=== PATIENT | male | born 1995 | race American Indian/Alaskan Native ===

== ENCOUNTER 2021-11-26 19:17 | Emergency (ER) | payer OTHER ==
[2021-11-26] MEDS ORDERED: LORazepam 2 MG/ML VIAL IM PRN (21:11)
[2021-11-26] MEDS ORDERED: HALOPERIDOL LACTATE 5 MG/1 ML INJ IM PRN (21:11)
--- NOTE | 2021-11-26 21:11 | Emergency Department Report ---
ED General Adult HPI - General Chief complaint: Psych Stated complaint: SUICIDAL Time Seen by Provider: 11/26/21 21:10 Source: patient, EMS (Verbal report received from emergency medical services. EMS documentation not available at time of chart dictation ), RN notes reviewed Mode of arrival: Stretcher Limitations: Other (Patient is disorganized and not forthcoming.) - History of Present Illness Initial comments: The patient is a 26-year-old gentleman who is brought to the hospital by emergency medical services with an EMS articulated complaint of 1013. [place] and reportedly wanted to overdose on insulin. As per EMS, he has not overdosed on insulin. In the emergency room, the patient is agitated, disorganized, and banging his head on the back of the wall. He would not answer questions about whether or not he wants to kill himself, or whether or not he overdosed on insulin. And spite of attempting to verbally de- escalate patient, and demonstrate show of force, patient continues to bang head on the back of wall, and is not demonstrative of decision-making capacity for rational thought process. He is therefore placed on a 1013, and medicated with haloperidol, Ativan, and subsequently Geodon, to allow for acquisition of appropriate diagnostic studies. The patient is not accompanied by friends or family at this time for collateral information or additional information. EMS reports unremarkable vital signs and specifically unremarkable Accu-Chek in the field -: unknown - Related Data Allergies Allergy/AdvReac Type Severity Reaction Status Date / Time aspirin AdvReac Unknown Verified 11/26/21 20:26 ED Review of Systems ROS: Stated complaint: SUICIDAL Other details as noted in HPI Comment: Unobtainable due to pts medical conditions ED Past Medical Hx - Past Medical History Hx Hypertension: Yes Hx Diabetes: Yes Hx Asthma: Yes - Social History Smoking Status: Unknown if ever smoked ED Physical Exam - General Limitations: No Limitations, Other (Patient is disorganized and uncooperative) General appearance: anxious, obese - Head Head exam: Present: atraumatic, normocephalic - Eye Eye exam: Present: normal appearance, EOMI. Absent: nystagmus - ENT ENT exam: Present: normal exam, normal orophraynx, mucous membranes moist, normal external ear exam - Neck Neck exam: Present: normal inspection, full ROM. Absent: tenderness, meningismus - Respiratory Respiratory exam: Present: normal lung sounds bilaterally. Absent: respiratory distress, wheezes, rales, rhonchi, stridor, decreased breath sounds - Cardiovascular Cardiovascular Exam: Present: normal rhythm, tachycardia, normal heart sounds. Absent: bradycardia, irregular rhythm, systolic murmur, diastolic murmur, rubs, gallop - GI/Abdominal GI/Abdominal exam: Present: soft. Absent: distended, tenderness, guarding, rebound, rigid, pulsatile mass - Rectal Rectal exam: Present: deferred - Extremities Exam Extremities exam: Present: normal inspection, full ROM, other (2+ pulses noted in the bilateral upper and lower extremities. There is no palpable cord. negative Homans sign. Muscular compartments are soft. The pelvis is stable.). Absent: calf tenderness - Back Exam Back exam: Present: normal inspection. Absent: tenderness, CVA tenderness (R), CVA tenderness (L), paraspinal tenderness, vertebral tenderness - Neurological Exam Neurological exam: Present: alert (The patient is alert to name. The patient moves 4 extremities. There is no facial droop. The tongue is midline. There is 5 out of 5 strength in 4 extremities.) - Psychiatric Psychiatric exam: Present: agitated, anxious - Skin Skin exam: Present: warm, dry, intact, normal color. Absent: rash ED Course Vital Signs 11/26/21 11/26/21 20:16 21:13 Temperature 98 F Pulse Rate 115 H Respiratory 16 Rate Blood Pressure 156/116 O2 Sat by Pulse 96 Oximetry - Reevaluation(s) Reevaluation #1: 11/26/21 21:46 Differential diagnosis, including but not limited to: Psychosis, disorganized behavior, overdose, medical clearance for psychiatric placement Assessment and plan: 26-year-old gentleman, who is afebrile, with reassuring vital signs with exception of tachycardia, likely secondary to agitation, psychosis, and suicidality, presenting today with EMS with disorganized behavior, lack of decision-making capacity, self-injurious behavior, and report of suicide ideation. 1013 is ordered. Appropriate as needed sedating medications ordered. Appropriate laboratory studies are requested. Psychiatric consultation is requested. Observe patient in the ER, reassess after laboratory studies have resulted. Reevaluation #2: 11/26/21 21:53 Patient noted to be eating fried chicken. Have advised patient that he is NPO. Patient still continues to eat his fried chicken. Attempted to move fried chicken from patient's hands and mouth. Have ordered n.p.o. status, and aspiration precautions. Reevaluation #3: 11/26/21 22:13 Police Department have arrived and de-escalated the patient. Phlebotomy able to obtain laboratory studies. Patient more calm and cooperative. Still anxious and disorganized. Awaiting laboratory studies. White blood cell count of 13 is most likely a stress reaction 11/26/21 22:58 Laboratory studies essentially unremarkable. Mild hyperglycemia reviewed and appreciated. CO2 of 18 likely secondary to hyperventilation. 11/27/21 01:02 Sleeping comfortably in stretcher. No acute distress. IV fluids infusing. Awaiting repeat basic metabolic panel. 11/27/21 02:04 Patient resting comfortably in stretcher. Repeat basic metabolic panel is reviewed and appreciated. Metabolic derangements essentially resolved. Hyperglycemia reviewed and appreciated. UA, COVID swab pending. The ER will follow along as the patient provides these. At this point in time, this patient does not appear to have an immediate medical contraindication to psychiatric admission, evaluation, consultation and placement. - EJ/Peripheral Line Arm R Time Out Performed: Yes Skin Cleansed in Sterile Fashion: Yes Size: 20 Dressing Placed: Tegaderm Patient Tolerated Procedure: well ED Medical Decision Making - Lab Data Result diagrams: 11/26/21 22:00 11/27/21 01:07 Vital Signs 11/26/21 11/26/21 20:16 21:13 Temperature 98 F Pulse Rate 115 H Respiratory 16 Rate Blood Pressure 156/116 O2 Sat by Pulse 96 Oximetry Lab Results 11/26/21 11/26/21 11/26/21 Range/Units 22:00 22:00 22:00 WBC (4.5-11.0) K/mm3 RBC (3.65-5.03) M/mm3 Hgb (11.8-15.2) gm/dl Hct (35.5-45.6) % MCV (84-94) fl MCH (28-32) pg MCHC (32-34) % RDW (13.2-15.2) % Plt Count (140-440) K/mm3 Sodium 132 L (137-145) mmol/L Potassium 4.1 (3.6-5.0) mmol/L Chloride 90.8 L (98-107) mmol/L Carbon Dioxide 18 L (22-30) mmol/L Anion Gap 27 mmol/L BUN 18 (9-20) mg/dL Creatinine 1.1 (0.8-1.3) mg/dL Estimated GFR > 60 ml/min BUN/Creatinine Ratio 16 % Glucose 331 H (75-100) mg/dL Calcium 10.2 (8.4-10.2) mg/dL Total Bilirubin 0.60 (0.1-1.2) mg/dL AST 18 (5-40) units/L ALT 33 (7-56) units/L Alkaline Phosphatase 65 (35-129) units/L Total Protein 8.4 H (6.3-8.2) g/dL Albumin 5.1 H (3.9-5) g/dL Albumin/Globulin Ratio 1.5 % TSH 4.470 H (0.270-4.200) mlU/mL Salicylates < 0.3 L (2.8-20.0) mg/dL Acetaminophen (10.0-30.0) ug/mL Valproic Acid < 2.8 L (50-100) ug/mL Waller 0.1 (0.0-1.2) mmol/L Plasma/Serum Alcohol (0-0.07) % 11/26/21 11/26/21 11/26/21 Range/Units 22:00 22:00 22:00 WBC 13.8 H (4.5-11.0) K/mm3 RBC 5.52 H (3.65-5.03) M/mm3 Hgb 15.1 (11.8-15.2) gm/dl Hct 44.7 (35.5-45.6) % MCV 81 L (84-94) fl MCH 27 L (28-32) pg MCHC 34 (32-34) % RDW 13.3 (13.2-15.2) % Plt Count 400 (140-440) K/mm3 Sodium (137-145) mmol/L Potassium (3.6-5.0) mmol/L Chloride (98-107) mmol/L Carbon Dioxide (22-30) mmol/L Anion Gap mmol/L BUN (9-20) mg/dL Creatinine (0.8-1.3) mg/dL Estimated GFR ml/min BUN/Creatinine Ratio % Glucose (75-100) mg/dL Calcium (8.4-10.2) mg/dL Total Bilirubin (0.1-1.2) mg/dL AST (5-40) units/L ALT (7-56) units/L Alkaline Phosphatase (35-129) units/L Total Protein (6.3-8.2) g/dL Albumin (3.9-5) g/dL Albumin/Globulin Ratio % TSH (0.270-4.200) mlU/mL Salicylates (2.8-20.0) mg/dL Acetaminophen 5.0 L (10.0-30.0) ug/mL Valproic Acid (50-100) ug/mL Waller (0.0-1.2) mmol/L Plasma/Serum Alcohol < 0.01 (0-0.07) % Critical care attestation.: If time is entered above; I have spent that time in minutes in the direct care of this critically ill patient, excluding procedure time. ED Disposition Clinical Impression: Medical clearance for psychiatric admission Disposition: [address] [place] [address] Is pt being admited?: No Does the pt Need Aspirin: No Condition: Good Referrals: REJI JERRY MD [Primary Care Provider] - 3-5 Days
[2021-11-26] MEDS ORDERED: ZIPRASIDONE MESYLATE 20 MG VIAL IM PRN (21:34)
[2021-11-26] MEDS ORDERED: ZIPRASIDONE MESYLATE 20 MG VIAL IM ONE (21:35)
[2021-11-26 22:11] LABS: Hematocrit 44.7 % (35.5-45.6); Hemoglobin 15.1 gm/dl (11.8-15.2); Mean Corpuscular HGB Conc 34 % (32-34); Mean Corpuscular Volume 81 fl (84-94); Platelet Count 400 K/mm3 (140-440); Red Blood Count 5.52 M/mm3 (3.65-5.03); Red Cell Distribution Width 13.3 % (13.2-15.2)
[2021-11-26 22:53] LABS: Alanine Aminotransferase 33 units/L (7-56); Albumin 5.1 g/dL (3.9-5); BUN/Creatinine Ratio 16; Blood Urea Nitrogen 18 mg/dL (9-20); Calcium 10.2 mg/dL (8.4-10.2); Hemolysis Index 34
[2021-11-26] MEDS ORDERED: SODIUM CHLORIDE 0.9% 1000 ML 2,000 ML IV ONE (23:06)
[2021-11-27 01:57] LABS: BUN/Creatinine Ratio 19; Blood Urea Nitrogen 19 mg/dL (9-20); Calcium 9.5 mg/dL (8.4-10.2); Hemolysis Index 5
[2021-11-27] MEDS ORDERED: DEXTROSE 50% IN WATER (25GM) 50 ML SYRINGE IV PRN ×2 (02:05→18:37)
[2021-11-27 04:50] LABS: Bilirubin,Urine NEG (Negative); Blood,Urine NEG (Negative); Color,Urine Yellow (Yellow); Mucus,Urine 1+ /HPF; Urobilinogen,Urine < 2.0 mg/dL (<2.0)
[2021-11-27 04:58] LABS: Amphetamine Screen,Urine PRESUMPTIVE NEGATIVE; Benzodiazepines Screen,Urine PRESUMPTIVE NEGATIVE; Cannabinoid Screen,Urine PRESUMPTIVE NEGATIVE; Cocaine Screen,Urine PRESUMPTIVE NEGATIVE; Methadone Screen,Urine PRESUMPTIVE NEGATIVE; Opiate Screen,Urine PRESUMPTIVE NEGATIVE
--- NOTE | 2021-11-27 14:39 | Consultation ---
History of Present Illness - Reason for Consult Consult date: 11/27/21 Reason for consult: mental health evaluation - History of Present Psychiatric Illness ED Note: The patient is a 26-year-old gentleman who is brought to the hospital by emergency medical services with an EMS articulated complaint of 1013. [place] and reportedly wanted to overdose on insulin. As per EMS, he has not overdosed on insulin. In the emergency room, the patient is agitated, disorganized, and banging his head on the back of the wall. He would not answer questions about whether or not he wants to kill himself, or whether or not he overdosed on insulin. And spite of attempting to verbally de-escalate patient, and demonstrate show of force, patient continues to bang head on the back of wall, and is not demonstrative of decision-making capacity for rational thought process. He is therefore placed on a 1013, and medicated with haloperidol, Ativan, and subsequently Geodon, to allow for acquisition of appropriate diagnostic studies. The patient is a 26 year old male with history unknown psychiatric history. In my encounter with the patient, he is calm, alert and oriented x3. The patient reports having suicidal ideation yesterday " I'm going through a lot of relationship problem, I recently broke up with my girl friend, I'm ok with it now." He endorses being depressed but states he was not trying to overdose on Insulin. The patient denies any current suicidal/homicidal ideation and denies hallucinations. PAST PSYCHIATRIC HISTORY Diagnoses: Unknown Suicide attempts or Self-harm behavior: Denies Prior psychiatric hospitalizations: Yes Substance Abuse history: Denies Previous psychiatric medications tried: Denies Outpatient treatment: Unknown PAST MEDICAL HISTORY: None reported Family Psychiatric History: None reported or documented SOCIAL HISTORY Marital Status: Single Living Arrangements: Lives with step mom Employment Status:employed Access to guns/weapons: Denies Education: 12th grade History of Abuse: Denies Legal History: unknown REVIEW OF SYSTEMS Constitutional: Negative for weight loss ENT: Negative for stridor Respiratory: Negative for cough or hemoptysis All other systems reviewed and are negative MENTAL STATUS EXAMINATION General Appearance and Behavior: Age appropriate, good hygiene, wearing appropriate clothes, good eye contact, anxious, cooperative Cooperation: Participating/engaged Psychomotor Behavior: Psychomotor normal Mood:depressed Affect and affective range: congruent with stated mood Thought Process: Goal directed Thought Content: Goal oriented Speech: Normal tone and pace Suicidal Ideation:Denies Homicidal Ideation: Denies Hallucinations: Denies Delusions: None Impulse Control: Limited Insight and Judgment: Limited insight and judgment Memory: Limited Attention: attentive Orientation: Alert, oriented Diagnoses: Major depressive disorder Treatment Plan 1013 Continue home meds Prozac 20mg po daily Trazodone 50mg po QHs PSYCHOTHERAPY: Supportive psychotherapy provided MEDICAL: Per primary team DELIRIUM PRECAUTIONS: Please re-orient patient frequently, keep lights on during the day, and minimize benzodiazepines and opiates as these medications could worsen patient's confusion. WELL HEAD PUMPER: Per medical team DISPOSITION:Recommend acute psychiatric inpatient treatment. Will follow. Thanks. Thank you for the consult. Case staffed with Dr. Ortega Medications and Allergies Medications and Allergies Allergies Allergy/AdvReac Type Severity Reaction Status Date / Time aspirin AdvReac Unknown Verified 11/26/21 20:26 Active Meds: Active Medications Dextrose (Dextrose 50% In Water (25gm) 50 Ml Syringe) 50 ml IV Q30MIN PRN; Prot ocol PRN Reason: Hypoglycemia Haloperidol Lactate (Haloperidol Lactate 5 Mg/1 Ml Inj) 5 mg IM Q6HR PRN PRN Reason: Agitation Insulin Glargine (Insulin Glargine 100 Units/Ml) 10 units SUB-Q QHS GILBERTO Insulin Human Lispro (Insulin Lispro 100 Unit/Ml) 0 unit SUB-Q Q6HR GILBERTO; Protocol Lorazepam (Lorazepam 2 Mg/Ml Vial) 2 mg IM Q4HR PRN PRN Reason: Agitation Ziprasidone (Ziprasidone Mesylate 20 Mg Vial) 10 mg IM Q2H PRN PRN Reason: Agitation Mental Status Exam - Vital signs Last Vital Signs Temp 98 F 11/26/21 21:13 Pulse 97 H 11/27/21 11:45 Resp 24 11/27/21 13:15 BP 136/68 11/27/21 13:15 Pulse Ox 89 11/27/21 13:15 Results Result Diagrams: 11/26/21 22:00 11/27/21 01:07 Abnormal lab results 11/26/21 11/26/21 11/26/21 Range/Units 22:00 22:00 22:00 WBC (4.5-11.0) K/mm3 RBC (3.65-5.03) M/mm3 MCV (84-94) fl MCH (28-32) pg Sodium 132 L (137-145) mmol/L Chloride 90.8 L (98-107) mmol/L Carbon Dioxide 18 L (22-30) mmol/L Glucose 331 H (75-100) mg/dL POC Glucose (70-105) mg/dL Total Protein 8.4 H (6.3-8.2) g/dL Albumin 5.1 H (3.9-5) g/dL TSH 4.470 H (0.270-4.200) mlU/mL Salicylates < 0.3 L (2.8-20.0) mg/dL Acetaminophen (10.0-30.0) ug/mL Valproic Acid < 2.8 L (50-100) ug/mL 11/26/21 11/26/21 11/27/21 Range/Units 22:00 22:00 01:07 WBC 13.8 H (4.5-11.0) K/mm3 RBC 5.52 H (3.65-5.03) M/mm3 MCV 81 L (84-94) fl MCH 27 L (28-32) pg Sodium 134 L (137-145) mmol/L Chloride 95.0 L (98-107) mmol/L Carbon Dioxide (22-30) mmol/L Glucose 311 H (75-100) mg/dL POC Glucose (70-105) mg/dL Total Protein (6.3-8.2) g/dL Albumin (3.9-5) g/dL TSH (0.270-4.200) mlU/mL Salicylates (2.8-20.0) mg/dL Acetaminophen 5.0 L (10.0-30.0) ug/mL Valproic Acid (50-100) ug/mL 11/27/21 Range/Units 08:53 WBC (4.5-11.0) K/mm3 RBC (3.65-5.03) M/mm3 MCV (84-94) fl MCH (28-32) pg Sodium (137-145) mmol/L Chloride (98-107) mmol/L Carbon Dioxide (22-30) mmol/L Glucose (75-100) mg/dL POC Glucose 238 H (70-105) mg/dL Total Protein (6.3-8.2) g/dL Albumin (3.9-5) g/dL TSH (0.270-4.200) mlU/mL Salicylates (2.8-20.0) mg/dL Acetaminophen (10.0-30.0) ug/mL Valproic Acid (50-100) ug/mL All other labs normal.
[2021-11-27] MEDS ORDERED: FLUoxetine 20 MG CAP PO ONE (15:12)
[2021-11-27] MEDS: INSULIN LISPRO 100 UNIT/ML SUB-Q SCH (18:37)
[2021-11-27] MEDS ORDERED: traZODone 50 MG TAB PO SCH (22:00)
[2021-11-27] MEDS ORDERED: INSULIN GLARGINE 100 UNITS/ML SUB-Q SCH (22:00)
[2021-11-27] MEDS ORDERED: LORazepam 2 MG/ML VIAL IV ONE (23:09)
[2021-11-28] MEDS: INSULIN LISPRO 100 UNIT/ML SUB-Q SCH (00:38)
[2021-11-28] MEDS: INSULIN REGULAR, HUMAN 100 UNITS/1 ML SUB-Q SCH ×2 (00:39→09:46)
--- NOTE | 2021-11-28 10:52 | Progress Note ---
Subjective - Reason for Consult Consult date: 11/28/21 Reason for consult: suicidal ideation - Chief Complaint Chief complaint: The patient was seen today. he is calm, alert and oriented x3. he reports that " I'm doing much better." The patient is remorseful about the incident that resulted in the current hospital admission. He states he has a job to go back to and also that his grandparents are supportive. The patient denies any current suicidal ideation and denies hallucinations. REVIEW OF SYSTEMS Constitutional: Negative for weight loss ENT: Negative for stridor Respiratory: Negative for cough or hemoptysis All other systems reviewed and are negative MENTAL STATUS EXAMINATION General Appearance and Behavior: Age appropriate, good hygiene, wearing appropriate clothes, good eye contact, anxious, cooperative Cooperation: Participating/engaged Psychomotor Behavior: Psychomotor normal Mood:Ok Affect and affective range: congruent with stated mood Thought Process: Goal directed Thought Content: Goal oriented Speech: Normal tone and pace Suicidal Ideation:Denies Homicidal Ideation: Denies Hallucinations: Denies Delusions: None Impulse Control: Limited Insight and Judgment: Limited insight and judgment Memory: Limited Attention: attentive Orientation: Alert, oriented Diagnoses: Major depressive disorder Treatment Plan DC 1013 Continue home meds Continue Prozac 20mg po daily PSYCHOTHERAPY: Supportive psychotherapy provided MEDICAL: Per primary team DELIRIUM PRECAUTIONS: Please re-orient patient frequently, keep lights on during the day, and minimize benzodiazepines and opiates as these medications could worsen patient's confusion. HEAD OF PHYSICS: Per medical team DISPOSITION:Do not recommend acute psychiatric inpatient treatment. Ship Pilot Dispatcher will provide patient with psychiatric outpatient resources and safety plan. Will sign off. Thanks. Thank you for the consult. Case staffed with Dr. Ortega Medications and Allergies Mental Status Exam - Vital signs Last Vital Signs Temp 98 F 11/26/21 21:13 Pulse 80 11/28/21 09:50 Resp 18 11/28/21 09:50 BP 167/100 11/28/21 09:50 Pulse Ox 99 11/28/21 09:50
--- NOTE | 2021-11-28 12:17 | Event Note ---
Date: 11/28/21 The patient was evaluated in the emergency department for symptoms described in the history of present illness. He/she was evaluated in the context of the global COVID-19 pandemic, which necessitated consideration that the patient might be at risk for infection with the virus that causes COVID-19. Institutional protocols and algorithms that pertain to the evaluation of patients at risk for COVID-19 are in a state of rapid change based on information released by regulatory bodies including the CDC and federal and state organizations. These policies and algorithms were followed during the patient's care in the emergency department. Please note that these policies, procedures and recommendations changed on a rapid basis. Laboratory studies, vital signs, nursing documentation, ER documentation, and psychiatric documentation are reviewed and appreciated. Nursing team reports no acute events this morning or concerns. The patient is awake and ambulating and does not appear to be in any acute distress. In my reassessment with the patient, he is very apologetic for his behavior a few days ago, and awake, alert, oriented, sober. He is adamant that he is not homicidal or suicidal. He is of sound mind at this point in time and exhibits decision-making capacity. Today, he is not meet criteria for 1013 hold or involuntary confinement. The psychiatric team have made similar recommendations. The patient follows with the [facility]. I have advised patient as to how he may follow-up with outpatient resources within the [facility]. Return precautions are reviewed. All questions answered. He may follow-up with his outpatient primary care doctor for his chronic hyperglycemia. Vital Signs 11/26/21 11/26/21 11/27/21 20:16 21:13 06:02 Temperature 98 F Pulse Rate 115 H 109 H Respiratory 16 26 H Rate Blood Pressure 156/116 Blood Pressure [Right] O2 Sat by Pulse 96 92 Oximetry 11/27/21 11/27/21 11/27/21 06:09 06:15 06:31 Temperature Pulse Rate Respiratory 25 H 27 H Rate Blood Pressure 164/98 164/98 Blood Pressure 152/78 [Right] O2 Sat by Pulse 89 91 Oximetry 11/27/21 11/27/21 11/27/21 06:45 07:01 07:15 Temperature Pulse Rate Respiratory 27 H 29 H 26 H Rate Blood Pressure 164/98 169/95 169/95 Blood Pressure [Right] O2 Sat by Pulse 91 87 94 Oximetry 11/27/21 11/27/21 11/27/21 07:31 07:45 08:01 Temperature Pulse Rate 87 104 H Respiratory 26 H 18 27 H Rate Blood Pressure 169/95 169/95 170/104 Blood Pressure 135/65 [Right] O2 Sat by Pulse 94 100 79 L Oximetry 11/27/21 11/27/21 11/27/21 08:15 08:31 08:45 Temperature Pulse Rate Respiratory 27 H 21 21 Rate Blood Pressure 170/104 170/104 170/104 Blood Pressure [Right] O2 Sat by Pulse 89 92 90 Oximetry 11/27/21 11/27/21 11/27/21 09:01 09:13 09:15 Temperature Pulse Rate 123 H 100 H Respiratory 20 18 Rate Blood Pressure 153/102 153/102 Blood Pressure [Right] O2 Sat by Pulse 98 99 98 Oximetry 11/27/21 11/27/21 11/27/21 09:45 10:01 10:31 Temperature Pulse Rate 97 H 100 H 105 H Respiratory 20 22 25 H Rate Blood Pressure 153/102 150/91 150/91 Blood Pressure [Right] O2 Sat by Pulse 96 95 92 Oximetry 11/27/21 11/27/21 11/27/21 11:45 12:45 13:15 Temperature Pulse Rate 97 H Respiratory 23 23 24 Rate Blood Pressure 130/86 147/99 136/68 Blood Pressure [Right] O2 Sat by Pulse 94 90 89 Oximetry 11/27/21 11/27/21 11/27/21 14:01 16:31 16:45 Temperature Pulse Rate Respiratory Rate Blood Pressure 140/94 151/90 151/90 Blood Pressure [Right] O2 Sat by Pulse 88 100 94 Oximetry 11/27/21 11/27/21 11/27/21 17:45 18:01 18:15 Temperature Pulse Rate Respiratory Rate Blood Pressure 157/73 141/86 141/86 Blood Pressure [Right] O2 Sat by Pulse 95 95 88 Oximetry 11/27/21 11/28/21 11/28/21 18:27 08:00 09:50 Temperature Pulse Rate 80 88 80 Respiratory 18 18 18 Rate Blood Pressure Blood Pressure 141/86 154/65 167/100 [Right] O2 Sat by Pulse 100 99 99 Oximetry Lab Results 11/26/21 11/26/21 11/26/21 Range/Units 22:00 22:00 22:00 WBC (4.5-11.0) K/mm3 RBC (3.65-5.03) M/mm3 Hgb (11.8-15.2) gm/dl Hct (35.5-45.6) % MCV (84-94) fl MCH (28-32) pg MCHC (32-34) % RDW (13.2-15.2) % Plt Count (140-440) K/mm3 Sodium 132 L (137-145) mmol/L Potassium 4.1 (3.6-5.0) mmol/L Chloride 90.8 L (98-107) mmol/L Carbon Dioxide 18 L (22-30) mmol/L Anion Gap 27 mmol/L BUN 18 (9-20) mg/dL Creatinine 1.1 (0.8-1.3) mg/dL Estimated GFR > 60 ml/min BUN/Creatinine Ratio 16 % Glucose 331 H (75-100) mg/dL POC Glucose (70-105) mg/dL Calcium 10.2 (8.4-10.2) mg/dL Total Bilirubin 0.60 (0.1-1.2) mg/dL AST 18 (5-40) units/L ALT 33 (7-56) units/L Alkaline Phosphatase 65 (35-129) units/L Total Protein 8.4 H (6.3-8.2) g/dL Albumin 5.1 H (3.9-5) g/dL Albumin/Globulin Ratio 1.5 % TSH 4.470 H (0.270-4.200) mlU/mL Urine Color (Yellow) Urine Turbidity (Clear) Urine pH (5.0-7.0) Ur Specific [place] (1.003-1.030) Urine Protein (Negative) mg/dL Urine Glucose (UA) (Negative) mg/dL Urine Ketones (Negative) mg/dL Urine Blood (Negative) Urine Nitrite (Negative) Urine Bilirubin (Negative) Urine Urobilinogen (<2.0) mg/dL Ur Leukocyte Esterase (Negative) Urine WBC (Auto) (0.0-6.0) /HPF Urine RBC (Auto) (0.0-6.0) /HPF U Epithel Cells (Auto) (0-13.0) /HPF Urine Mucus /HPF Salicylates < 0.3 L (2.8-20.0) mg/dL Urine Opiates Screen Urine Methadone Screen Acetaminophen (10.0-30.0) ug/mL Ur Barbiturates Screen Valproic Acid < 2.8 L (50-100) ug/mL Ur Phencyclidine Scrn Ur Amphetamines Screen U Benzodiazepines Scrn Tab 0.1 (0.0-1.2) mmol/L Urine Cocaine Screen U Marijuana (THC) Screen Drugs of Abuse Note Plasma/Serum Alcohol (0-0.07) % Coronavirus (PCR) (Negative) 11/26/21 11/26/21 11/26/21 Range/Units 22:00 22:00 22:00 WBC 13.8 H (4.5-11.0) K/mm3 RBC 5.52 H (3.65-5.03) M/mm3 Hgb 15.1 (11.8-15.2) gm/dl Hct 44.7 (35.5-45.6) % MCV 81 L (84-94) fl MCH 27 L (28-32) pg MCHC 34 (32-34) % RDW 13.3 (13.2-15.2) % Plt Count 400 (140-440) K/mm3 Sodium (137-145) mmol/L Potassium (3.6-5.0) mmol/L Chloride (98-107) mmol/L Carbon Dioxide (22-30) mmol/L Anion Gap mmol/L BUN (9-20) mg/dL Creatinine (0.8-1.3) mg/dL Estimated GFR ml/min BUN/Creatinine Ratio % Glucose (75-100) mg/dL POC Glucose (70-105) mg/dL Calcium (8.4-10.2) mg/dL Total Bilirubin (0.1-1.2) mg/dL AST (5-40) units/L ALT (7-56) units/L Alkaline Phosphatase (35-129) units/L Total Protein (6.3-8.2) g/dL Albumin (3.9-5) g/dL Albumin/Globulin Ratio % TSH (0.270-4.200) mlU/mL Urine Color (Yellow) Urine Turbidity (Clear) Urine pH (5.0-7.0) Ur Specific [place] (1.003-1.030) Urine Protein (Negative) mg/dL Urine Glucose (UA) (Negative) mg/dL Urine Ketones (Negative) mg/dL Urine Blood (Negative) Urine Nitrite (Negative) Urine Bilirubin (Negative) Urine Urobilinogen (<2.0) mg/dL Ur Leukocyte Esterase (Negative) Urine WBC (Auto) (0.0-6.0) /HPF Urine RBC (Auto) (0.0-6.0) /HPF U Epithel Cells (Auto) (0-13.0) /HPF Urine Mucus /HPF Salicylates (2.8-20.0) mg/dL Urine Opiates Screen Urine Methadone Screen Acetaminophen 5.0 L (10.0-30.0) ug/mL Ur Barbiturates Screen Valproic Acid (50-100) ug/mL Ur Phencyclidine Scrn Ur Amphetamines Screen U Benzodiazepines Scrn Tab (0.0-1.2) mmol/L Urine Cocaine Screen U Marijuana (THC) Screen Drugs of Abuse Note Plasma/Serum Alcohol < 0.01 (0-0.07) % Coronavirus (PCR) (Negative) 11/26/21 11/26/21 11/27/21 Range/Units Unknown Unknown 01:07 WBC (4.5-11.0) K/mm3 RBC (3.65-5.03) M/mm3 Hgb (11.8-15.2) gm/dl Hct (35.5-45.6) % MCV (84-94) fl MCH (28-32) pg MCHC (32-34) % RDW (13.2-15.2) % Plt Count (140-440) K/mm3 Sodium 134 L (137-145) mmol/L Potassium 4.0 (3.6-5.0) mmol/L Chloride 95.0 L (98-107) mmol/L Carbon Dioxide 24 (22-30) mmol/L Anion Gap 19 mmol/L BUN 19 (9-20) mg/dL Creatinine 1.0 (0.8-1.3) mg/dL Estimated GFR > 60 ml/min BUN/Creatinine Ratio 19 % Glucose 311 H (75-100) mg/dL POC Glucose (70-105) mg/dL Calcium 9.5 (8.4-10.2) mg/dL Total Bilirubin (0.1-1.2) mg/dL AST (5-40) units/L ALT (7-56) units/L Alkaline Phosphatase (35-129) units/L Total Protein (6.3-8.2) g/dL Albumin (3.9-5) g/dL Albumin/Globulin Ratio % TSH (0.270-4.200) mlU/mL Urine Color Yellow (Yellow) Urine Turbidity Clear (Clear) Urine pH 6.0 (5.0-7.0) Ur Specific [place] 1.015 (1.003-1.030) Urine Protein 30 mg/dl (Negative) mg/dL Urine Glucose (UA) >=500 (Negative) mg/dL Urine Ketones Neg (Negative) mg/dL Urine Blood Neg (Negative) Urine Nitrite Neg (Negative) Urine Bilirubin Neg (Negative) Urine Urobilinogen < 2.0 (<2.0) mg/dL Ur Leukocyte Esterase Neg (Negative) Urine WBC (Auto) 2.0 (0.0-6.0) /HPF Urine RBC (Auto) 2.0 (0.0-6.0) /HPF U Epithel Cells (Auto) < 1.0 (0-13.0) /HPF Urine Mucus 1+ /HPF Salicylates (2.8-20.0) mg/dL Urine Opiates Screen Presumptive negative Urine Methadone Screen Presumptive negative Acetaminophen (10.0-30.0) ug/mL Ur Barbiturates Screen Presumptive negative Valproic Acid (50-100) ug/mL Ur Phencyclidine Scrn Presumptive negative Ur Amphetamines Screen Presumptive negative U Benzodiazepines Scrn Presumptive negative Tab (0.0-1.2) mmol/L Urine Cocaine Screen Presumptive negative U Marijuana (THC) Screen Presumptive negative Drugs of Abuse Note Disclamer Plasma/Serum Alcohol (0-0.07) % Coronavirus (PCR) (Negative) 11/27/21 11/27/21 11/27/21 Range/Units 08:53 15:35 18:24 WBC (4.5-11.0) K/mm3 RBC (3.65-5.03) M/mm3 Hgb (11.8-15.2) gm/dl Hct (35.5-45.6) % MCV (84-94) fl MCH (28-32) pg MCHC (32-34) % RDW (13.2-15.2) % Plt Count (140-440) K/mm3 Sodium (137-145) mmol/L Potassium (3.6-5.0) mmol/L Chloride (98-107) mmol/L Carbon Dioxide (22-30) mmol/L Anion Gap mmol/L BUN (9-20) mg/dL Creatinine (0.8-1.3) mg/dL Estimated GFR ml/min BUN/Creatinine Ratio % Glucose (75-100) mg/dL POC Glucose 238 H 265 H 272 H (70-105) mg/dL Calcium (8.4-10.2) mg/dL Total Bilirubin (0.1-1.2) mg/dL AST (5-40) units/L ALT (7-56) units/L Alkaline Phosphatase (35-129) units/L Total Protein (6.3-8.2) g/dL Albumin (3.9-5) g/dL Albumin/Globulin Ratio % TSH (0.270-4.200) mlU/mL Urine Color (Yellow) Urine Turbidity (Clear) Urine pH (5.0-7.0) Ur Specific [place] (1.003-1.030) Urine Protein (Negative) mg/dL Urine Glucose (UA) (Negative) mg/dL Urine Ketones (Negative) mg/dL Urine Blood (Negative) Urine Nitrite (Negative) Urine Bilirubin (Negative) Urine Urobilinogen (<2.0) mg/dL Ur Leukocyte Esterase (Negative) Urine WBC (Auto) (0.0-6.0) /HPF Urine RBC (Auto) (0.0-6.0) /HPF U Epithel Cells (Auto) (0-13.0) /HPF Urine Mucus /HPF Salicylates (2.8-20.0) mg/dL Urine Opiates Screen Urine Methadone Screen Acetaminophen (10.0-30.0) ug/mL Ur Barbiturates Screen Valproic Acid (50-100) ug/mL Ur Phencyclidine Scrn Ur Amphetamines Screen U Benzodiazepines Scrn Tab (0.0-1.2) mmol/L Urine Cocaine Screen U Marijuana (THC) Screen Drugs of Abuse Note Plasma/Serum Alcohol (0-0.07) % Coronavirus (PCR) (Negative) 11/27/21 11/27/21 11/28/21 Range/Units 21:41 Unknown 09:18 WBC (4.5-11.0) K/mm3 RBC (3.65-5.03) M/mm3 Hgb (11.8-15.2) gm/dl Hct (35.5-45.6) % MCV (84-94) fl MCH (28-32) pg MCHC (32-34) % RDW (13.2-15.2) % Plt Count (140-440) K/mm3 Sodium (137-145) mmol/L Potassium (3.6-5.0) mmol/L Chloride (98-107) mmol/L Carbon Dioxide (22-30) mmol/L Anion Gap mmol/L BUN (9-20) mg/dL Creatinine (0.8-1.3) mg/dL Estimated GFR ml/min BUN/Creatinine Ratio % Glucose (75-100) mg/dL POC Glucose 232 H 297 H (70-105) mg/dL Calcium (8.4-10.2) mg/dL Total Bilirubin (0.1-1.2) mg/dL AST (5-40) units/L ALT (7-56) units/L Alkaline Phosphatase (35-129) units/L Total Protein (6.3-8.2) g/dL Albumin (3.9-5) g/dL Albumin/Globulin Ratio % TSH (0.270-4.200) mlU/mL Urine Color (Yellow) Urine Turbidity (Clear) Urine pH (5.0-7.0) Ur Specific [place] (1.003-1.030) Urine Protein (Negative) mg/dL Urine Glucose (UA) (Negative) mg/dL Urine Ketones (Negative) mg/dL Urine Blood (Negative) Urine Nitrite (Negative) Urine Bilirubin (Negative) Urine Urobilinogen (<2.0) mg/dL Ur Leukocyte Esterase (Negative) Urine WBC (Auto) (0.0-6.0) /HPF Urine RBC (Auto) (0.0-6.0) /HPF U Epithel Cells (Auto) (0-13.0) /HPF Urine Mucus /HPF Salicylates (2.8-20.0) mg/dL Urine Opiates Screen Urine Methadone Screen Acetaminophen (10.0-30.0) ug/mL Ur Barbiturates Screen Valproic Acid (50-100) ug/mL Ur Phencyclidine Scrn Ur Amphetamines Screen U Benzodiazepines Scrn Tab (0.0-1.2) mmol/L Urine Cocaine Screen U Marijuana (THC) Screen Drugs of Abuse Note Plasma/Serum Alcohol (0-0.07) % Coronavirus (PCR) Negative (Negative)
[2021-11-28 13:12] VITALS: BP 132/60
== END 2021-11-28 13:13 | disposition home or self-care (01) ==
LOC: ED 19:17
DX: Z13.30 Encounter for screening examination for mental health and behavioral disorders, unspecified (principal); I10 Essential (primary) hypertension; E11.8 Type 2 diabetes mellitus with unspecified complications; J45.909 Unspecified asthma, uncomplicated; Z20.822 Contact with and (suspected) exposure to COVID-19
CPT/HCPCS: 36415; 36569; 80048; 80053; 80164; 80178; 80307; 81001; 82962; 84443; 85027; 96361; 96372; 96374; 99285; J1630; J2060; J3486; J7030; U0003; 80320; 99284; Q9967; G0480; J1815